=== PATIENT | male | born 1950 | race Caucasian/White ===

== ENCOUNTER 2017-05-04 01:37 | Inpatient (IN) | payer OTHER, MEDICARE ==
[2017-05-04] VITALS (13 sets, daily range): BP systolic 134–188; BP diastolic 63–84; PULSE 72–105; RESP 16–20; TEMP 96.1–98.6; O2SAT 97–99
[~2017-05-04] VITALS: Ht 182.9 cm; Wt 86.3 kg
[~2017-05-04 01:37] MED LIST: ALLBC PO; CARB45TA PO; FEXO180T PO; HEMATINIC/FA PO; LISI-360 PO; LOMO2.5T PO; LOVA10TA PO; METR500I3 PO; NACCAP PO; OMEP20TA PO
[2017-05-04] MEDS ORDERED: ASPI-183 PO (01:57)
[2017-05-04] MEDS ORDERED: LISI40TA PO (01:57)
[2017-05-04] MEDS ORDERED: HYDR-3799 PO (01:57)
[2017-05-04] MEDS ORDERED: CEPH250C PO (01:57)
[2017-05-04] MEDS ORDERED: METO50TA PO (01:57)
[2017-05-04] MEDS ORDERED: BACT800T5 PO (01:57)
[2017-05-04] MEDS ORDERED: ATOR40TA16 PO (01:57)
[2017-05-04] MEDS ORDERED: diphenhydrAMINE HCL 50 MG/ML VIAL IV PUSH ONE (02:15)
--- NOTE | 2017-05-04 02:16 | PD ---
HPI Chief Complaint: Skin Problem Time Seen by Provider: 01:49 Travel History International Travel<30 days: No Contact w/Intl Traveler<30days: No Traveled to known affect area: No History of Present Illness HPI The patient is a 66 year old male who presents to the [facility] emergency department with a history of wrestling 2-1/2 weeks ago playing with the dog and getting his arm caught between a couch and the wall. The patient reports that he yanked his arm out and acquired an abrasion along the lateral and dorsal aspect of the left forearm. He reports that about a week later he noticed that the area was getting red, slightly swollen, and also draining honey colored drainage. He went to [facility] in [facility] for evaluation and was treated with antibiotic. The patient was started on Keflex and Bactrim. He has also been applying Neosporin ointment. He reports that he was doing better up until this evening when he developed generalized itching. He denies taking anything for the itching prior to arrival. The patient is noted to have some bruising of the left elbow and left forearm which he reports is related to the injury. He denies having any imaging done of this left arm. He reports that he bruises easily related to being on an adult aspirin daily. The patient reports that his tetanus is up-to-date. On review of systems, he denies having any known fevers, cough, congestion, neck pain, chest pain, shortness of breath , abdominal pain, vomiting, diarrhea, urinary symptoms, or neurologic symptoms. [facility] Past Medical History Narrative Medical The patient's past medical history is significant for depression, history of arthritis, history of anxiety disorder, history of peripheral vascular disease, history of aortic stenosis status post valve replacement along with coronary artery bypass grafting, history of hypertension. Depression: Yes Cardiovascular Problems: Yes (MURMUR/ CURRENT ANEURYSM) High Cholesterol: Yes Coronary Artery Disease: Yes Diminished Hearing: No Gastrointestinal Disorders: Yes GERD: Yes Hypertension: Yes Neurologic: Yes Tetanus Vaccination: < 5 Years Influenza Vaccination: No Past Surgical History Narrative Surgical The patient's past surgical history is significant for hernia repair, shoulder surgery, history of aortic valve replacement and coronary artery bypass grafting. Abdominal Surgery: Yes (INGUINAL HERNIA REPAIR.) Coronary Artery Bypass Graft: Yes Other Surgery: Yes (cartoid artery ) Social History Alcohol Use: Yes (daily) Tobacco Use: No (QUIT 5 MONTHS AGO) Substance Use: No Allergies-Medications (Allergen,Severity, Reaction): Coded Allergies: No Known Allergies (Verified Allergy, Severe, 04/21/12) Reported Meds & Prescriptions Reported Meds & Active Scripts Active Reported Aspirin 325 Mg Tab 325 Mg PO DAILY Bactrim DS (Sulfamethoxazole-Trimethoprim) 800-160 Mg Tab 1 Tab PO BID Cephalexin 250 Mg Cap 250 Mg PO Q6H Atorvastatin (Atorvastatin Calcium) 40 Mg Tab 40 Mg PO HS Hydralazine HCl 25 Mg Tablet 25 Mg PO DAILY Metoprolol Tartrate 50 Mg Tab 50 Mg PO DAILY Lisinopril 40 Mg Tab 40 Mg PO BID Review of Systems Except as stated in HPI: all other systems reviewed are Neg General / Constitutional: No: Fever Eyes: No: Visual changes HENT: No: Headaches Cardiovascular: No: Chest Pain or Discomfort Respiratory: No: Shortness of Breath Gastrointestinal: No: Nausea, Vomiting, Diarrhea, Abdominal Pain Genitourinary: No: Dysuria Musculoskeletal: Positive: Edema, No: Pain Skin: Positive Rash, Positive Itching Neurologic: No: Weakness, Focal Abnormalities, Change in Mentation, Slurred Speech, Sensory Disturbance Psychiatric: No: Depression Endocrine: No: Polydipsia Hematologic/Lymphatic: No: Easy Bruising Physical Exam Narrative General: The patient is a well-developed well-nourished male in no acute distress. Head and Neck exam: Head is normocephalic atraumatic. Eyes: EOMI, pupils are equal round and reactive to light. Nose: Midline septum with pink mucous membranes Mouth: Dentition unremarkable. Moist mucus membranes. Posterior oropharynx is not erythematous. No tonsillar hypertrophy. Uvula midline. Airway patent. Neck: No palpable lymphadenopathy. No nuchal rigidity. No thyromegaly. Cardiovascular: Regular rate and rhythm with a 2/6 systolic murmur, no gallops or rubs. The patient reports having a history of heart murmur with an aortic valve replacement. Lungs: Clear to auscultation bilaterally. No wheezes, rhonchi, or rales. Abdomen: Soft, without tenderness to palpation in all 4 quadrants of the abdomen. No guarding, rebound, or rigidity. Normal bowel sounds are audible. No tenderness on palpation of McBurney's point. Extremities: No clubbing, cyanosis, or edema. 2+ pulses in all 4 extremities. No calf tenderness on palpation. Back: No spinous process tenderness to palpation. No costovertebral angle tenderness to palpation. Neurologic Exam: Grossly nonfocal. Skin Exam: The patient on examination is noted to have dry skin. The patient is repeatedly scratching at his neck, arms. The patient has scratch levine with excoriations noted. The patient has areas of superficial bruising related to scratching. The patient is noted on examination of the left forearm to have skin erythema with honey-colored crusting and a band involving the dorsal aspect of the left forearm. Additionally, the patient appears to have urticaria on his hands. Data Data Last Documented VS Vital Signs Date Time Temp Pulse Resp B/P (MAP) Pulse Ox O2 Delivery O2 Flow Rate FiO2 05/04/17 03:47 98.2 100 16 174/79 (110) 99 Room Air Orders Orders Complete Blood Count With Diff (05/04/17 02:08) Comprehensive Metabolic Panel (05/04/17 02:08) Prothrombin Time / Inr (Pt) (05/04/17 02:08) Act Partial Throm Time (Ptt) (05/04/17 02:08) C-Reactive Protein (Crp) (05/04/17 02:08) Iv Access Insert/Monitor (05/04/17 02:08) Ecg Monitoring (05/04/17 02:08) Oximetry (05/04/17 02:08) Diphenhydramine Inj (Benadryl Inj) (05/04/17 02:15) Sodium Chlorid 0.9% 500 Ml Inj (Ns 500 M (05/04/17 03:00) Chest, Single Ap (05/04/17 02:57) Forearm (2vws) (05/04/17 ) Urinalysis - C+S If Indicated (05/04/17 03:47) Sodium, Random Urine (05/04/17 03:47) Osmolality, Urine (05/04/17 03:47) Osmolality,Serum (05/04/17 03:47) Sodium Chloride 0.9% Flush (Ns Flush) (05/04/17 04:00) Admit Order (Ed Use Only) (05/04/17 04:00) Cefazolin 2 Gm Premix (Ancef 2 Gm Premix (05/04/17 04:00) Labs Laboratory Tests Test 05/04/17 02:10 05/04/17 04:00 White Blood Count 7.0 TH/MM3 Red Blood Count 4.04 MIL/MM3 Hemoglobin 13.2 GM/DL Hematocrit 37.2 % Mean Corpuscular Volume 92.1 FL Mean Corpuscular Hemoglobin 32.6 PG Mean Corpuscular Hemoglobin Concent 35.4 % Red Cell Distribution Width 12.6 % Platelet Count 255 TH/MM3 Mean Platelet Volume 7.8 FL Neutrophils (%) (Auto) 56.4 % Lymphocytes (%) (Auto) 13.8 % Monocytes (%) (Auto) 16.6 % Eosinophils (%) (Auto) 12.3 % Basophils (%) (Auto) 0.9 % Neutrophils # (Auto) 4.0 TH/MM3 Lymphocytes # (Auto) 1.0 TH/MM3 Monocytes # (Auto) 1.2 TH/MM3 Eosinophils # (Auto) 0.9 TH/MM3 Basophils # (Auto) 0.1 TH/MM3 CBC Comment DIFF FINAL Differential Comment Prothrombin Time 10.0 SEC Prothromb Time International Ratio 1.0 RATIO Activated Partial Thromboplast Time 32.1 SEC Blood Urea Nitrogen 15 MG/DL Creatinine 1.21 MG/DL Random Glucose 96 MG/DL Total Protein 7.9 GM/DL Albumin 4.2 GM/DL Calcium Level 9.0 MG/DL Alkaline Phosphatase 123 U/L Aspartate Amino Transf (AST/SGOT) 44 U/L Alanine Aminotransferase (ALT/SGPT) 55 U/L Total Bilirubin 0.7 MG/DL Sodium Level 124 MEQ/L Potassium Level 4.7 MEQ/L Chloride Level 93 MEQ/L Carbon Dioxide Level 22.0 MEQ/L Anion Gap 9 MEQ/L Estimat Glomerular Filtration Rate 60 ML/MIN C-Reactive Protein 0.89 MG/DL Urine Color LIGHT-YELLOW Urine Turbidity CLEAR Urine pH 5.0 Urine Specific Donaldson 1.002 Urine Protein NEG mg/dL Urine Glucose (UA) NEG mg/dL Urine Ketones 10 mg/dL Urine Occult Blood NEG Urine Nitrite NEG Urine Bilirubin NEG Urine Urobilinogen LESS THAN 2.0 MG/DL Urine Leukocyte Esterase NEG Urine Mucus FEW /lpf Microscopic Urinalysis Comment CULT NOT INDICATED Urine Osmolality 148 MOSM/KG Urine Random Sodium 29 MEQ/L Serum Osmolality 268 MOSM/KG MDM Medical Decision Making Medical Screen Exam Complete: Yes Emergency Medical Condition: Yes Medical Record Reviewed: Yes Interpretation(s) Last Impressions Chest X-Ray 05/04/17 0257 Signed Impressions: Service Date/Time: Thursday, May 04, 2017 03:05 - CONCLUSION: Cardiomegaly. Clear lungs. Daniel Yousif Jr., MD Radius/Ulna X-Ray 05/04/17 0000 Signed Impressions: Service Date/Time: Thursday, May 04, 2017 03:18 - CONCLUSION: Unremarkable examination of the left forearm. Daniel Yousif Jr., MD Differential Diagnosis Allergic reaction, versus contact dermatitis, versus worsening cellulitis, versus impetigo Narrative Course During the course of the patients emergency department visit, the patients history, examination, and differential diagnosis were reviewed with the patient. The patient was placed on a satellite project site monitor with oximetry and frequent blood pressure monitoring. The patient had IV access obtained and blood work sent for analysis. A chest x-ray was ordered, left forearm x-ray was ordered. The patient was initially provided Benadryl 50 mg IV. The patient was given Ancef 2 g IV. The patients laboratory studies were reviewed and remarkable for a white count of 7, hemoglobin 13.2, platelets 255 with monocytes 16.6, eosinophilia at 12.3. CMP is remarkable for sodium of 124, chloride 93, GFR 60, AST 44, alkaline phosphatase 123, C-reactive protein 0.89, serum osmolality is 268, PT 10, PTT 32.1, urinalysis shows 10 ketones otherwise unremarkable, urine osmolality is 148, urine random sodium is 29. Given the patient's hyponatremia and ketones in the urine the patient was given normal saline a 500 mL bolus. The patient's sodium will be reassessed. The patient will be admitted to the hospital for hyponatremia. Radiology studies were reviewed and remarkable for a chest x-ray that shows cardiomegaly, clear lungs otherwise. Radius and ulna on forearm x-ray on the left side are negative for acute abnormality. The patients results were discussed with the patient, including the plan of care. I explained that further testing and/ or monitoring is indicated based on the patients history, examination, and/ or laboratory findings. Therefore, I recommended admission for additional evaluation. The patient expressed understanding and was agreeable with this plan. The patient was admitted to the hospital in stable condition and [facility] Physician Communication Physician Communication The patient's case including history, pertinent physical examination findings, and laboratory studies were discussed with Dr. Portillo. It was agreed that the [facility] Diagnosis Primary Impression: Hyponatremia Additional Impressions: Urticaria Left arm cellulitis Admitting Information Admitting Physician Requests: Admit Katy Ricci MD May 04, 2017 02:16
[2017-05-04 02:27] LABS: BASOPHIL # 0.1 TH/MM3 (0-0.2); BASOPHIL % 0.9 % (0.0-2.0); EOSINOPHIL # 0.9 TH/MM3 (0-0.4); EOSINOPHIL % 12.3 % (0.0-4.0); HEMATOCRIT 37.2 % (39.0-51.0); HEMOGLOBIN 13.2 GM/DL (13.0-17.0); LYMPH % 13.8 % (9.0-44.0); MEAN CELL VOLUME 92.1 FL (80.0-100.0); MEAN CORPUSCULAR HEMOGLOBIN 32.6 PG (27.0-34.0); MEAN CORPUSCULAR HGB CONC 35.4 % (32.0-36.0); MEAN PLATELET VOLUME 7.8 FL (7.0-11.0); MONO % 16.6 % (0.0-8.0); MONOCYTE # 1.2 TH/MM3 (0-0.9); NEUT % 56.4 % (16.0-70.0); PLATELET COUNT 255 TH/MM3 (150-450); RED BLOOD COUNT 4.04 MIL/MM3 (4.50-5.90); RED CELL DISTRIBUTION WIDTH 12.6 % (11.6-17.2)
[2017-05-04 02:44] LABS: ALBUMIN 4.2 GM/DL (3.4-5.0); ALKALINE PHOSPHATASE 123 U/L (45-117); ALT (GPT) 55 U/L (12-78); AST (GOT) 44 U/L (15-37); BLOOD UREA NITROGEN 15 MG/DL (7-18); C-REACTIVE PROTEIN 0.89 MG/DL (0.00-0.30); CHLORIDE 93 MEQ/L (98-107); CREATININE 1.21 MG/DL (0.60-1.30); GLOMERULAR FILTRATION RATE 60 ML/MIN (>89); GLUCOSE,RANDOM 96 MG/DL (74-106); TOTAL BILIRUBIN ADULT 0.7 MG/DL (0.2-1.0); TOTAL PROTEIN 7.9 GM/DL (6.4-8.2)
[2017-05-04 02:45] LABS: SODIUM (NA) 124 MEQ/L (136-145)
[2017-05-04] MEDS ORDERED: SODIUM CHLORID 0.9% 500 ML INJ 500 ML IV ONE (03:00)
--- NOTE | 2017-05-04 03:45 | RADRPT ---
EXAM DATE/TIME: 05/04/2017 03:05 [facility] COMPARISON: No previous studies available for comparison. INDICATIONS : Cough and short of breath. MEDICAL HISTORY : None. SURGICAL HISTORY : CABG. ENCOUNTER: Initial ACUITY: 1 day PAIN SCORE: 0/10 LOCATION: Bilateral chest FINDINGS: 2 portable frontal views of the chest show median sternotomy wires and prosthetic heart valve. Heart is mildly enlarged. Lungs are clear. No infiltrates or effusions. CONCLUSION: Cardiomegaly. Clear lungs. Daniel Yousif Jr., MD on May 04, 2017 at 3:43 Board Certified Radiologist. This report was verified electronically.
--- NOTE | 2017-05-04 03:46 | RADRPT ---
EXAM DATE/TIME: 05/04/2017 03:18 [facility] COMPARISON: No previous studies available for comparison. INDICATIONS : Left forearm pain, redness, and itching. Unknown cause. MEDICAL HISTORY : None. SURGICAL HISTORY : None. ENCOUNTER: Initial ACUITY: 2 weeks PAIN SCORE: 6/10 LOCATION: Left forearm FINDINGS: Two view examination of the left forearm demonstrates no evidence of fracture or dislocation. Bony m ineralization is normal. The soft tissue structures are intact. CONCLUSION: Unremarkable examination of the left forearm. Daniel Yousif Jr., MD on May 04, 2017 at 3:44 Board Certified Radiologist. This report was verified electronically.
[2017-05-04] MEDS ORDERED: ceFAZolin 2 GM PREMIX 50 ML IV ONE (04:00)
[2017-05-04] MEDS ORDERED: SODIUM CHLORIDE 0.9% FLUSH 10 ML FLUSH IVF PRN (04:00)
[2017-05-04 04:13] LABS: BILIRUBIN, URINE NEG (NEG); BLOOD, URINE NEG (NEG); GLUCOSE,URINE NEG (NEG); KETONE, URINE 10 mg/dL (NEG); MUCUS URINE FEW /lpf (OCC); NITRITE,URINE NEG (NEG); SODIUM,RANDOM URINE 29 MEQ/L; URINE COLOR LIGHT-YELLOW (YELLW/STRAW); URINE LEUKOCYTE ESTERASE NEG (NEG)
[2017-05-04] MEDS ORDERED: LACTULOSE SYRUP 20 GM/30 ML CUP PO PRN (04:15)
[2017-05-04] MEDS ORDERED: SENNOSIDES 8.6 MG TAB PO PRN (04:15)
[2017-05-04] MEDS ORDERED: ACETAMINOPHEN 325 MG TAB PO PRN (04:15)
[2017-05-04] MEDS ORDERED: BISACODYL 10 MG SUPP RECTAL PRN (04:15)
[2017-05-04] MEDS ORDERED: MAGNESIUM HYDROXIDE SUSP 30 ML CUP PO PRN (04:15)
[2017-05-04] MEDS ORDERED: ACETAMINOPHEN/HYDROcodone 325 MG/5 MG TAB PO PRN (04:15)
[2017-05-04] MEDS ORDERED: MORPHINE SULFATE 2 MG/ML INJ IV PUSH PRN (04:15)
[2017-05-04] MEDS ORDERED: ONDANSETRON HCL 4 MG/2 ML VIAL IVP PRN (04:15)
[2017-05-04] MEDS ORDERED: Vancomycin Consult Pharmacy 1 EA OTHER SCH (04:15)
[2017-05-04 04:28] LABS: OSMOLALITY,URINE 148 MOSM/KG (300-1300)
[2017-05-04] MEDS ORDERED: VANCOMYCIN 1,000 MG/NS 250 ML IV ONE ×2 (05:00)
[2017-05-04] MEDS: SODIUM CHLOR 0.9% 1000 ML INJ 1,000 ML IV SCH ×2 (05:12→11:31)
[2017-05-04] MEDS: SODIUM CHLORIDE 0.9% FLUSH 10 ML FLUSH IV FLUSH SCH ×2 (09:00→20:27)
[2017-05-04] MEDS: DOCUSATE SODIUM 50 MG/SENNA 8.6 MG TAB PO SCH ×2 (09:00→20:27)
[2017-05-04] MEDS: diphenhydrAMINE HCL 50 MG/ML VIAL IV PUSH PRN ×2 (11:30→20:27)
[2017-05-04] MEDS: METOPROLOL TARTRATE 25 MG TAB PO SCH ×2 (11:51→20:27)
[2017-05-04 13:12] LABS: BICARBONATE 22.8 MEQ/L (21.0-32.0); CALCIUM 8.9 MG/DL (8.5-10.1); CREATININE 1.17 MG/DL (0.60-1.30)
[2017-05-04] MEDS ORDERED: THIAMINE HCL 100 MG TAB PO ONE (15:00)
[2017-05-04] MEDS ORDERED: diphenhydrAMINE HCL 50 MG/ML VIAL IM PRN (15:15)
--- NOTE | 2017-05-04 15:15 | HHI.HP ---
[facility] Unknown Admission Diagnosis Hyponatremia, left arm cellulitis Diagnoses: Travel History International Travel<30 Days: No Contact w/Intl Traveler <30 Da: No Traveled to Known Affected Are: No History of Present Illness 66-year-old male with a history of CAD, status post CABG, reports injuring his left arm last week, with subsequent erythema having undergone evaluation at [facility], prescribed Keflex and Bactrim with initial improvement. He presents today, however with a one-day history of worsening left forearm itching with extension up to left arm. He denies any pain at all. Denies any other systemic symptoms. As any chest pain, shortness breath, nausea, vomiting, fevers, chills. Patient does report a history of heavy drinking 9-10 beers per day. Denies any history of seizures or alcohol withdrawal. Review of Systems Except as stated in HPI: all other systems reviewed are Neg Past Family Social History Past Medical History CAD with CABG History of aortic valve repair Hyperlipidemia Hypertension Alcoholism. Past Surgical History CABG, as well as aortic valve replacement. Hernia repair Left carotid endarterectomy Reported Medications Reported Meds & Active Scripts Active Reported Aspirin 325 Mg Tab 325 Mg PO DAILY Bactrim DS (Sulfamethoxazole-Trimethoprim) 800-160 Mg Tab 1 Tab PO BID Cephalexin 250 Mg Cap 250 Mg PO Q6H Atorvastatin (Atorvastatin Calcium) 40 Mg Tab 40 Mg PO HS Hydralazine HCl 25 Mg Tablet 25 Mg PO DAILY Metoprolol Tartrate 50 Mg Tab 50 Mg PO DAILY Lisinopril 40 Mg Tab 40 Mg PO BID Allergies: Coded Allergies: No Known Allergies (Verified Allergy, Severe, 04/21/12) Family History says he is unsure of his family history as his parents when he was ready young. Social History Patient reports past history of smoking. He smoked 2 packs per day for 40 years , quitting 7 years ago.. Patient reports drinking 9-10 beers per day. He denies any history withdrawal. Denies any history of seizures. Patient denies any history of illicit drug use. Physical Exam Vital Signs Vital Signs Date Time Temp Pulse Resp B/P (MAP) Pulse Ox O2 Delivery O2 Flow Rate FiO2 05/04/17 12:00 97.6 91 20 134/63 (86) 98 05/04/17 10:56 Room Air 05/04/17 08:00 97.4 92 20 155/71 (99) 98 05/04/17 05:27 Room Air 05/04/17 05:14 97 05/04/17 04:55 97.8 105 16 155/74 (101) 97 05/04/17 03:47 98.2 100 16 174/79 (110) 99 Room Air 05/04/17 02:16 18 98 Room Air 05/04/17 02:00 98.6 05/04/17 01:40 97.9 105 20 188/84 (118) 98 Physical Exam GENERAL: This is a well-nourished, well-developed patient, in no apparent distress. aaox3 SKIN: Cool and dry. Patient with erythema, macerated skin over the left forearm with appearance of impetigo, with some erythema extending partially past elbow. Patient has various ecchymosis over his skin which she says is normal for him. HEAD: Atraumatic. Normocephalic. No temporal or scalp tenderness. EYES: Pupils equal round and reactive. Extraocular motions intact. No scleral icterus. No injection or drainage. ENT: Nose without bleeding, purulent drainage or septal hematoma. Throat without erythema, tonsillar hypertrophy or exudate. Uvula midline. Airway patent. NECK: Trachea midline. No JVD or lymphadenopathy. Supple, nontender, no meningeal signs. CARDIOVASCULAR: Regular rate and rhythm without murmurs, gallops, or rubs. RESPIRATORY: Clear to auscultation. Breath sounds equal bilaterally. No wheezes , rales, or rhonchi. GASTROINTESTINAL: Abdomen soft, non-tender, nondistended. No hepato-splenomegaly , or palpable masses. No guarding. MUSCULOSKELETAL: Extremities without clubbing, cyanosis, or edema. No joint tenderness, effusion, or edema noted. No calf tenderness. Negative Homans sign bilaterally. NEUROLOGICAL: Awake and alert. Cranial nerves II through XII intact. Motor and sensory grossly within normal limits. Five out of 5 muscle strength in all muscle groups. Normal speech. Laboratory Laboratory Tests Test 05/04/17 02:10 05/04/17 04:00 05/04/17 11:55 05/04/17 12:55 White Blood Count 7.0 Red Blood Count 4.04 Hemoglobin 13.2 Hematocrit 37.2 Mean Corpuscular Volume 92.1 Mean Corpuscular Hemoglobin 32.6 Mean Corpuscular Hemoglobin Concent 35.4 Red Cell Distribution Width 12.6 Platelet Count 255 Mean Platelet Volume 7.8 Neutrophils (%) (Auto) 56.4 Lymphocytes (%) (Auto) 13.8 Monocytes (%) (Auto) 16.6 Eosinophils (%) (Auto) 12.3 Basophils (%) (Auto) 0.9 Neutrophils # (Auto) 4.0 Lymphocytes # (Auto) 1.0 Monocytes # (Auto) 1.2 Eosinophils # (Auto) 0.9 Basophils # (Auto) 0.1 CBC Comment DIFF FINAL Differential Comment Prothrombin Time 10.0 Prothromb Time International Ratio 1.0 Activated Partial Thromboplast Time 32.1 Blood Urea Nitrogen 15 13 Creatinine 1.21 1.17 Random Glucose 96 97 Total Protein 7.9 Albumin 4.2 Calcium Level 9.0 8.9 Alkaline Phosphatase 123 Aspartate Amino Transf (AST/SGOT) 44 Alanine Aminotransferase (ALT/SGPT) 55 Total Bilirubin 0.7 Sodium Level 124 131 Potassium Level 4.7 5.1 Chloride Level 93 99 Carbon Dioxide Level 22.0 22.8 Anion Gap 9 9 Estimat Glomerular Filtration Rate 60 63 C-Reactive Protein 0.89 Urine Color LIGHT-YELLOW Urine Turbidity CLEAR Urine pH 5.0 Urine Specific [place] 1.002 Urine Protein NEG Urine Glucose (UA) NEG Urine Ketones 10 Urine Occult Blood NEG Urine Nitrite NEG Urine Bilirubin NEG Urine Urobilinogen LESS THAN 2.0 Urine Leukocyte Esterase NEG Urine Mucus FEW Microscopic Urinalysis Comment CULT NOT INDICATED Urine Osmolality 148 Urine Random Sodium 29 Serum Osmolality 268 Urine Opiates Screen NEG Urine Barbiturates Screen NEG Urine Amphetamines Screen NEG Urine Benzodiazepines Screen NEG Urine Cocaine Screen NEG Urine Cannabinoids Screen NEG Result Diagram: 05/04/17 0210 05/04/17 1155 Imaging Last Impressions Chest X-Ray 05/04/17 0257 Signed Impressions: Service Date/Time: Thursday, May 04, 2017 03:05 - CONCLUSION: Cardiomegaly. Clear lungs. Daniel Yousif Jr., MD Radius/Ulna X-Ray 05/04/17 0000 Signed Impressions: Service Date/Time: Thursday, May 04, 2017 03:18 - CONCLUSION: Unremarkable examination of the left forearm. Daniel Yousif Jr., MD Caprini VTE Risk Assessment Caprini VTE Risk Assessment: Mod/High Risk (score >= 2) Caprini Risk Assessment Model Point Value = 1 Point Value = 2 Point Value = 3 Point Value = 5 Age 41-60 Minor surgery BMI > 25 kg/m2 Swollen legs Varicose veins or History of unexplained or recurrent spontaneous Oral contraceptives or hormone replacement Sepsis (< 1 month) Serious lung disease, including pneumonia (< 1 month) Abnormal pulmonary function Acute myocardial infarction Congestive heart failure (< 1 month) History of inflammatory bowel disease Medical patient at bed rest Age 61-74 Arthroscopic surgery Major open surgery (> 45 min) Laparoscopic surgery (> 45 min) Malignancy Confined to bed (> 72 hours) Immobilizing plaster cast Central venous access Age >= 75 History of VTE Family history of VTE Factor V Leiden Prothrombin [id number] Lupus anticoagulant Anticardiolipin antibodies Elevated serum homocysteine Heparin-induced thrombocytopenia Other congenital or acquired thrombophilia Stroke (< 1 month) Elective arthroplasty Hip, pelvis, or leg fracture Acute spinal cord injury (< 1 month) Prophylaxis Regimen Total Risk Factor Score Risk Level Prophylaxis Regimen 0-1 Low Early ambulation 2 Moderate Order ONE of the following: *Sequential Compression Device (SCD) *Heparin 5000 units SQ BID 3-4 Higher Order ONE of the following medications: *Heparin 5000 units SQ TID *Enoxaparin/Lovenox 40 mg SQ daily (WT < 150 kg, CrCl > 30 mL/min) *Enoxaparin/Lovenox 30 mg SQ daily (WT < 150 kg, CrCl > 10-29 mL/min) *Enoxaparin/Lovenox 30 mg SQ BID (WT < 150 kg, CrCl > 30 mL/min) AND/OR *Sequential Compression Device (SCD) 5 or more Highest Order ONE of the following medications: *Heparin 5000 units SQ TID (Preferred with Epidurals) *Enoxaparin/Lovenox 40 mg SQ daily (WT < 150 kg, CrCl > 30 mL/min) *Enoxaparin/Lovenox 30 mg SQ daily (WT < 150 kg, CrCl > 10-29 mL/min) *Enoxaparin/Lovenox 30 mg SQ BID (WT < 150 kg, CrCl > 30 mL/min) AND *Sequential Compression Device (SCD) Assessment and Plan Assessment and Plan //Left arm cellulitis/impetigo. -Appears to be improving with antibiotics. Continue vancomycin and cefazolin. -Eosinophils appear to be elevated, however symptoms are improving. if fails to improve further, we'll consider antihistamine and steroids. -If this is a strep-related infection, would have expected this to improve very quickly on outpatient Keflex. We'll consult ID for assistance. //Severe hypoosmotic hyponatremia 124 on admission. //BEER potomania -History for alcoholism as below. Received IV fluids in the ER. imProved to 131. Will stop IV fluids, avoid alcohol. 2 L fluid restriction //Alcoholism -Scheduled Librium. Case management consult for alcohol rehabilitation resources. Patient counseled on cessation. //CAD //Hyperlipidemia -Continue metoprolol. Hold off on statin due to liver dysfunction. Hold off on lisinopril secondary to severe hyponatremia. Continue aspirin. Prophylaxis. SCDs Discussed Condition With Patient, nurse. Physician Certification 2 Midnight Certification Type: Admission for Inpatient Services Order for Inpatient Services The services are ordered in accordance with Medicare regulations or non- Medicare payer requirements, as applicable. In the case of services not specified as inpatient-only, they are appropriately provided as inpatient services in accordance with the 2-midnight benchmark. Estimated LOS (days): 2 days is the estimated time the patient will need to remain in the hospital, assuming treatment plan goals are met and no additional complications. Post-Hospital Plan: Not yet determined Brant Stein MD May 04, 2017 15:15
--- NOTE | 2017-05-04 16:58 | MB ---
cc: RADHA STEIN MD, FRANKLYN F. MD DATE OF CONSULTATION: 05/04/[address] Stein REASON FOR CONSULTATION Left arm cellulitis, failed antibiotic outpatient. HISTORY OF PRESENT ILLNESS This is a 66-year-old white male who sustained a tiny laceration to his left forearm about dmn-nms-w-half weeks ago. He was evaluated at [facility] in [facility] and he was given oral antibiotics to take for a week. The antibiotics were Keflex and Bactrim. He noted that the wound was looking worse and, therefore, he presented to [facility] for evaluation. He states that this arm has been weeping clear fluid. The patient states that the injury occurred initially when he was playing with his dog and he stuck his hand between the couch and the wall and when he pulled his hand out from that location, he had the laceration but there was no injury from the dog. The patient states he was wearing a long sleeve shirt and when he took it off he noticed it was worse. He notes that his arm has itching. He also notes that he was given a cream to put on the skin which he said he used. He cannot tell me what the name of the cream is. He was evaluated in the emergency department, was admitted and is now on intravenous vancomycin. His white blood cell count is normal. The patient has had tattoos on his arm and when I asked him about his right arm which has dry brown discoloration of the skin, he tells me that his arm has always been like that. PAST MEDICAL HISTORY 1. Hypertension. 2. Hyperlipidemia. 3. History of shoulder surgery. 4. History of aortic valve repair. 5. Hernia repair. 6. Carotid endarterectomy. ALLERGIES NO KNOWN DRUG ALLERGIES. MEDICATIONS 1. Aspirin. 2. Vancomycin. 3. Librium. 4. Benadryl. 5. Cefazolin. 6. Lopressor. 7. Ivis-Colace SOCIAL HISTORY Alcohol positive in the form of beer daily. The patient drinks at least 10 beers a day. No tobacco. No illicit drug use. FAMILY HISTORY Noncontributory. REVIEW OF SYSTEMS Negative on 10 point review except for itching and mild pain in the left upper extremity. The patient denies nausea or vomiting, shortness of breath or chills. PHYSICAL EXAMINATION This is a well-developed male who is in no acute distress. He is awake and alert and oriented. VITAL SIGNS: Include temperature 97.6, blood pressure 134/63, heart rate 91, respiratory rate 20. HEENT: The head is atraumatic. Extraocular movements grossly intact, no icterus. Oropharynx: moist mucosa without lesions. Neck: Supple. No adenopathy and no swelling. Lungs: Breath sounds clear. Heart: Regular S1-S2 without audible murmurs, rubs or gallops. Abdomen: Bowel sounds present, soft. No tenderness. Rectal: Not performed. Extremities: The left upper extremity has brown discoloration of the skin and there is clear drainage oozing. There is erythema slightly above the left elbow that is not confluent. Extremities have no clubbing, cyanosis or edema. Skin: Erythematous hue to the skin of the neck and chest, and also the dorsal aspect of the hands. Neuro: No gross focal findings. Psychiatric: The patient is calm and cooperative. LABORATORY DATA WBC 7.0, platelets 255, hemoglobin 13.1. Differential includes 12% eosinophils, 16% monocytes, 56% neutrophils, creatinine 1.17, BUN 13, sodium 131. IMAGING STUDIES Chest x-ray: No acute disease. X-ray of the left forearm: Unremarkable. IMPRESSION: Cellulitis involving the left upper extremity. The appearance of the left upper extremity also could be due to some sort of allergic reaction to either antibiotics or the cream that the patient was using on his upper extremity. He denies diffuse itching but he does have some itching of the left upper extremity and there is blister form appearance of the upper extremity as well. RECOMMENDATIONS 1. Obtain a culture of the clear drainage of the arm. 2. Continue vancomycin 3. Changes cephazolin to Unasyn. 4. Monitor clinical response. Thank for this consultation. I will follow the patient's progress and will make further recommendations if necessary. Charlie Vinson MD FD/NELLIE /4:01 PM /4:27 PM
[2017-05-04] MEDS ORDERED: AMPICILLIN-SULBACTAM INJ 3 GM VIAL IM SCH (17:00)
[2017-05-04] MEDS: AMPICILLIN/SULBAC 3 GM/NS 100 ML IV SCH ×2 (18:03)
[2017-05-05] VITALS (7 sets, daily range): BP systolic 103–146; BP diastolic 63–74; PULSE 57–100; RESP 16–20; TEMP 97.3–98.8; O2SAT 96–97
[2017-05-05] MEDS: diphenhydrAMINE HCL 50 MG/ML VIAL IV PUSH PRN (00:53)
[2017-05-05] MEDS: AMPICILLIN/SULBAC 3 GM/NS 100 ML IV SCH ×10 (00:53→23:42)
[2017-05-05] MEDS: VANCOMYCIN INJ 1,250 MG in SODIUM CHLOR 0.9% 250 ML INJ 250 ML IV SCH (05:45)
[2017-05-05 08:10] LABS: AUTOMATED NEUTROPHIL # 2.8 TH/MM3 (1.8-7.7); BASOPHIL # 0.1 TH/MM3 (0-0.2); BASOPHIL % 1.3 % (0.0-2.0); EOSINOPHIL % 17.5 % (0.0-4.0); HEMATOCRIT 37.5 % (39.0-51.0); LYMPH % 15.2 % (9.0-44.0); LYMPHOCYTE # 0.9 TH/MM3 (1.0-4.8); MEAN CELL VOLUME 94.9 FL (80.0-100.0); MEAN CORPUSCULAR HEMOGLOBIN 32.9 PG (27.0-34.0); MEAN CORPUSCULAR HGB CONC 34.6 % (32.0-36.0); MEAN PLATELET VOLUME 7.8 FL (7.0-11.0); MONO % 19.1 % (0.0-8.0); MONOCYTE # 1.1 TH/MM3 (0-0.9); NEUT % 46.9 % (16.0-70.0); PLATELET COUNT 223 TH/MM3 (150-450); RED BLOOD COUNT 3.95 MIL/MM3 (4.50-5.90); RED CELL DISTRIBUTION WIDTH 12.8 % (11.6-17.2); WHITE BLOOD COUNT 5.9 TH/MM3 (4.0-11.0)
[2017-05-05 08:31] LABS: ALBUMIN 3.7 GM/DL (3.4-5.0); ALT (GPT) 43 U/L (12-78); AST (GOT) 35 U/L (15-37); BICARBONATE 21.9 MEQ/L (21.0-32.0); BLOOD UREA NITROGEN 10 MG/DL (7-18); CHLORIDE 101 MEQ/L (98-107); CREATININE 1.01 MG/DL (0.60-1.30); GLOMERULAR FILTRATION RATE 74 ML/MIN (>89); GLUCOSE,RANDOM 104 MG/DL (74-106); SODIUM (NA) 132 MEQ/L (136-145)
[2017-05-05 08:32] LABS: ALKALINE PHOSPHATASE 111 U/L (45-117); TOTAL BILIRUBIN ADULT 0.7 MG/DL (0.2-1.0); TOTAL PROTEIN 7.4 GM/DL (6.4-8.2)
[2017-05-05] MEDS ORDERED: METOPROLOL TARTRATE 50 MG TAB PO SCH (09:00)
[2017-05-05] MEDS: THIAMINE HCL 100 MG TAB PO SCH (09:21)
[2017-05-05] MEDS: METOPROLOL TARTRATE 25 MG TAB PO SCH ×2 (09:22→21:04)
[2017-05-05] MEDS: DOCUSATE SODIUM 50 MG/SENNA 8.6 MG TAB PO SCH ×2 (09:22→21:04)
[2017-05-05] MEDS: ASPIRIN 325 MG TAB PO SCH (09:22)
[2017-05-05] MEDS: SODIUM CHLORIDE 0.9% FLUSH 10 ML FLUSH IV FLUSH SCH ×2 (09:23→21:05)
--- NOTE | 2017-05-05 12:29 | HHI.IDPN ---
Note Infectious Disease Note Patient notes itching of the arms and also the back. Afebrile. Denies chills. No joint aches. This is a 66-year-old white male who sustained a tiny laceration to his left forearm about xgs-msp-a-half weeks ago. He was evaluated at [facility] in [facility] and he was given oral antibiotics to take for a week. The antibiotics were Keflex and Bactrim. He noted that the wound was looking worse and, therefore, he presented to [place] for evaluation. PAST MEDICAL HISTORY 1. Hypertension. 2. Hyperlipidemia. 3. History of shoulder surgery. 4. History of aortic valve repair. 5. Hernia repair. 6. Carotid endarterectomy. ALLERGIES NO KNOWN DRUG ALLERGIES. Current Medications Medications (Trade) Dose Ordered Sig/Arnaldo Route PRN Reason Start Time Stop Time Status Last Admin Dose Admin Sodium Chloride (NS Flush) 2 ml UNSCH PRN IVF FLUSH AFTER USING IV ACCESS 05/04/17 04:00 Pharmacy Profile Note 0 ml @ 0 mls/hr UNSCH OTHER 05/04/17 04:15 Sodium Chloride (NS Flush) 2 ml UNSCH PRN IV FLUSH FLUSH AFTER USING IV ACCESS 05/04/17 04:15 Sodium Chloride (NS Flush) 2 ml BID IV FLUSH 05/04/17 09:00 05/05/17 09:23 Ondansetron HCl (Zofran Inj) 4 mg Q6H PRN IVP NAUSEA OR VOMITING 05/04/17 04:15 Acetaminophen (Tylenol) 650 mg Q6H PRN PO FEVER/PAIN SCALE 1 TO 2 05/04/17 04:15 Acetaminophen/ Hydrocodone Bitart ([place] 5-325 Mg) 1 tab Q4H PRN PO PAIN SCALE 3 TO 5 05/04/17 04:15 Morphine Sulfate (Morphine Inj) 2 mg Q3H PRN IV PUSH Pain 6-10 05/04/17 04:15 Senna/Docusate Sodium (Ivis-Colace) 1 tab BID PO 05/04/17 09:00 05/05/17 09:22 Magnesium Hydroxide (Milk Of Magnesia Liq) 30 ml Q12H PRN PO Mild constipation 05/04/17 04:15 Sennosides (Senokot) 17.2 mg Q12H PRN PO Moderate constipation 05/04/17 04:15 Bisacodyl (Dulcolax Supp) 10 mg DAILY PRN RECTAL SEVERE CONSITIPATION 05/04/17 04:15 Lactulose (Lactulose Liq) 30 ml DAILY PRN PO SEVERE CONSITIPATION 05/04/17 04:15 Diphenhydramine HCl (Benadryl Inj) 25 mg Q4H PRN IV PUSH ITCHING 05/04/17 04:15 05/05/17 00:53 Vancomycin HCl 1250 mg/Sodium Chloride 262.5 ml @ 250 mls/hr Q24H IV 05/05/17 06:00 05/05/17 05:45 Miscellaneous Information SPECIFIC LAB TO BE HUGO... ONCE ONCE .XX 05/07/17 05:45 05/07/17 05:46 Aspirin (Aspirin) 325 mg DAILY PO 05/05/17 09:00 05/05/17 09:22 Metoprolol Tartrate (Lopressor) 25 mg Q12HR PO 05/04/17 12:00 05/05/17 09:22 Chlordiazepoxide (Librium) 5 mg TID PO 05/04/17 18:00 05/05/17 09:21 Thiamine HCl (Vitamin B1) 100 mg DAILY PO 05/05/17 09:00 05/05/17 09:21 Diphenhydramine HCl (Benadryl Inj) 25 mg Q4H PRN IM ITCHING 05/04/17 15:15 Ampicillin Sodium/ Sulbactam Sodium 3 gm/Sodium Chloride 100 ml @ 200 mls/hr Q6H IV 05/04/17 18:00 05/05/17 05:01 OBJECTIVE: Vital Signs Date Time Temp Pulse Resp B/P (MAP) Pulse Ox O2 Delivery O2 Flow Rate FiO2 05/05/17 08:00 97.7 71 20 146/74 (98) 97 05/05/17 04:00 Room Air 05/05/17 04:00 97.4 71 16 124/70 (88) 97 05/05/17 03:46 57 05/05/17 00:00 Room Air 05/05/17 00:00 97.5 65 18 146/67 (93) 97 05/04/17 23:46 72 05/04/17 20:00 97.8 80 18 151/79 (103) 98 1/1/18 20:00 Room Air 05/04/17 19:52 82 05/04/17 17:32 82 05/04/17 16:00 96.1 83 20 151/67 (95) 98 05/04/17 16:00 81 Laboratory Tests Test 05/04/17 02:10 05/05/17 07:37 White Blood Count 7.0 TH/MM3 5.9 TH/MM3 Red Blood Count 4.04 MIL/MM3 3.95 MIL/MM3 Hemoglobin 13.2 GM/DL 13.0 GM/DL Hematocrit 37.2 % 37.5 % Mean Corpuscular Volume 92.1 FL 94.9 FL Mean Corpuscular Hemoglobin 32.6 PG 32.9 PG Mean Corpuscular Hemoglobin Concent 35.4 % 34.6 % Red Cell Distribution Width 12.6 % 12.8 % Platelet Count 255 TH/MM3 223 TH/MM3 Mean Platelet Volume 7.8 FL 7.8 FL Neutrophils (%) (Auto) 56.4 % 46.9 % Lymphocytes (%) (Auto) 13.8 % 15.2 % Monocytes (%) (Auto) 16.6 % 19.1 % Eosinophils (%) (Auto) 12.3 % 17.5 % Basophils (%) (Auto) 0.9 % 1.3 % Neutrophils # (Auto) 4.0 TH/MM3 2.8 TH/MM3 Lymphocytes # (Auto) 1.0 TH/MM3 0.9 TH/MM3 Monocytes # (Auto) 1.2 TH/MM3 1.1 TH/MM3 Eosinophils # (Auto) 0.9 TH/MM3 1.0 TH/MM3 Basophils # (Auto) 0.1 TH/MM3 0.1 TH/MM3 CBC Comment DIFF FINAL DIFF FINAL Differential Comment Laboratory Tests Test 05/04/17 02:10 05/04/17 04:00 05/04/17 11:55 05/05/17 07:37 Blood Urea Nitrogen 15 MG/DL 13 MG/DL 10 MG/DL Creatinine 1.21 MG/DL 1.17 MG/DL 1.01 MG/DL Random Glucose 96 MG/DL 97 MG/DL 104 MG/DL Total Protein 7.9 GM/DL 7.4 GM/DL Albumin 4.2 GM/DL 3.7 GM/DL Calcium Level 9.0 MG/DL 8.9 MG/DL 9.0 MG/DL Alkaline Phosphatase 123 U/L 111 U/L Aspartate Amino Transf (AST/SGOT) 44 U/L 35 U/L Alanine Aminotransferase (ALT/SGPT) 55 U/L 43 U/L Total Bilirubin 0.7 MG/DL 0.7 MG/DL Sodium Level 124 MEQ/L 131 MEQ/L 132 MEQ/L Potassium Level 4.7 MEQ/L 5.1 MEQ/L 4.3 MEQ/L Chloride Level 93 MEQ/L 99 MEQ/L 101 MEQ/L Carbon Dioxide Level 22.0 MEQ/L 22.8 MEQ/L 21.9 MEQ/L Anion Gap 9 MEQ/L 9 MEQ/L 9 MEQ/L Estimat Glomerular Filtration Rate 60 ML/MIN 63 ML/MIN 74 ML/MIN C-Reactive Protein 0.89 MG/DL Serum Osmolality 268 MOSM/KG Total Creatine Kinase 123 U/L Microbiology Date/Time Source Procedure Growth Status 05/04/17 18:00 Wound Arm Gram Stain - Final Resulted 05/04/17 18:00 Wound Arm Wound Culture Pending Resulted SOCIAL HISTORY Alcohol positive in the form of beer daily. The patient drinks at least 10 beers a day. No tobacco. No illicit drug use. PHYSICAL EXAMINATION No acute distress. He is awake and alert and oriented. HEENT: The head is atraumatic. Extraocular movements grossly intact, no icterus. Oropharynx: moist mucosa without lesions. Neck: Supple. No adenopathy and no swelling. Lungs: Breath sounds clear. Heart: Regular S1-S2 without audible murmurs, rubs or gallops. Abdomen: Bowel sounds present, soft. No tenderness. Extremities: The left upper extremity has brown discoloration of the skin and there is clear drainage oozing. There is erythema slightly above the left elbow that is not confluent. Extremities have no clubbing, cyanosis or edema. Skin: Erythematous rash at the neck and chest, back and hands. Neuro: No gross focal findings. Psychiatric: Calm and cooperative. IMPRESSION: Cellulitis involving the left upper extremity. The appearance of the left upper extremity also could be due to some sort of allergic reaction to either antibiotics or the cream that the patient was using on his upper extremity. No improvement. RECOMMENDATIONS 1. Follow wound culture. 2. Continue Vancomycin 3. Continue Unasyn. 4. Telfa dressing to the left arm. 5. Monitor clinical response. Charlie Vinson MD May 05, 2017 12:29
[2017-05-05] MEDS ORDERED: LORazepam 2 MG/ML VIAL IV PUSH PRN ×4 (13:45)
[2017-05-05] MEDS ORDERED: FLUMAZENIL 0.5 MG/5 ML VIAL IV PUSH PRN (13:45)
[2017-05-05] MEDS ORDERED: LORazepam 2 MG TAB PO PRN (13:45)
[2017-05-05] MEDS ORDERED: LORazepam 1 MG TAB PO PRN (13:45)
--- NOTE | 2017-05-05 13:45 | HHI.PR ---
Subjective Remarks Follow-up cellulitis of left upper extremity 05/05/17-patient seen and examined, still complains of left upper extremity seeping.Afebrile Objective Vitals Vital Signs Date Time Temp Pulse Resp B/P (MAP) Pulse Ox O2 Delivery O2 Flow Rate FiO2 05/05/17 12:00 97.3 68 20 135/72 (93) 96 05/05/17 08:00 64 05/05/17 08:00 97.7 71 20 146/74 (98) 97 05/05/17 07:00 Room Air 05/05/17 04:00 Room Air 05/05/17 04:00 97.4 71 16 124/70 (88) 97 05/05/17 03:46 57 05/05/17 00:00 Room Air 05/05/17 00:00 97.5 65 18 146/67 (93) 97 05/04/17 23:46 72 05/04/17 20:00 97.8 80 18 151/79 (103) 98 05/04/17 20:00 Room Air 05/04/17 19:52 82 05/04/17 17:32 82 05/04/17 16:00 96.1 83 20 151/67 (95) 98 05/04/17 16:00 81 I/O 05/04/17 05/04/17 05/04/17 05/05/17 05/05/17 05/05/17 07:00 15:00 23:00 07:00 15:00 23:00 Intake Total 550 ml 480 ml 240 ml 120 ml Output Total 1550 ml 1400 ml Balance 550 ml -1070 ml -1160 ml 120 ml Intake Oral 480 ml 240 ml 120 ml IV Total 550 ml Output Urine Total 1550 ml 1400 ml # Bowel Movements 0 0 Result Diagram: 05/05/17 0737 05/05/17 0737 Imaging Last Impressions Chest X-Ray 05/04/17 0257 Signed Impressions: Service Date/Time: Thursday, May 04, 2017 03:05 - CONCLUSION: Cardiomegaly. Clear lungs. Daniel Yousif Jr., MD Radius/Ulna X-Ray 05/04/17 0000 Signed Impressions: Service Date/Time: Thursday, May 04, 2017 03:18 - CONCLUSION: Unremarkable examination of the left forearm. Daniel Yousif Jr., MD Objective Remarks GENERAL: NAD SKIN: Warm and dry.left arm cellulitis with seeping of fluid HEAD: Normocephalic. EYES: No scleral icterus. No injection or drainage. NECK: Supple, trachea midline. No JVD or lymphadenopathy. CARDIOVASCULAR: Regular rate and rhythm without murmurs, gallops, or rubs. RESPIRATORY: Breath sounds equal bilaterally. No accessory muscle use. GASTROINTESTINAL: Abdomen soft, non-tender, nondistended. MUSCULOSKELETAL: No cyanosis, or edema. BACK: Nontender without obvious deformity. No CVA tenderness. A/P Problem List: (1) Left arm cellulitis ICD Code: L03.114 - Cellulitis of left upper limb Status: Acute Assessment and Plan 66-year-old man with Left arm cellulitis/impetigo. Currently on Unasyn and vancomycin per ID Monitor culture Severe hypoosmotic hyponatremia 124 on admission. BEER potomania Resolved Alcoholism Scheduled Librium. CIWA, rally pack CAD Hyperlipidemia Resume Statin, continue ASA Hypertension Resume Hydralazine and continue current meds Prophylaxis. SCDs Erasto Rodriguez MD May 05, 2017 13:45
[2017-05-05] MEDS: ATORVASTATIN 40 MG TAB PO SCH (21:02)
[2017-05-05] MEDS: SODIUM CHLORIDE 0.9% FLUSH 10 ML FLUSH IV FLUSH PRN (23:43)
[2017-05-06] VITALS: BP 108/54; PULSE 65; PULSE 68; RESP 16; TEMP 97.7; O2SAT 96
[2017-05-06 04:00] VITALS: BP 144/80; PULSE 56; PULSE 76; RESP 18; TEMP 97.1; O2SAT 96
[2017-05-06] MEDS: AMPICILLIN/SULBAC 3 GM/NS 100 ML IV SCH ×6 (04:43→18:43)
[2017-05-06] MEDS: SODIUM CHLORIDE 0.9% FLUSH 10 ML FLUSH IV FLUSH PRN (04:43)
[2017-05-06] MEDS: VANCOMYCIN INJ 1,250 MG in SODIUM CHLOR 0.9% 250 ML INJ 250 ML IV SCH (04:49)
[2017-05-06 08:00] VITALS: BP_SYST 140; BP_SYST 147; BP_DIAS 75; PULSE 67; PULSE 68; RESP 20; TEMP 97.1; TEMP 97.5; O2SAT 97
[2017-05-06 08:10] VITALS: PULSE 64
[2017-05-06] MEDS: THIAMINE HCL 100 MG TAB PO SCH (09:30)
[2017-05-06] MEDS: DOCUSATE SODIUM 50 MG/SENNA 8.6 MG TAB PO SCH ×2 (09:30→21:00)
[2017-05-06] MEDS: METOPROLOL TARTRATE 25 MG TAB PO SCH ×2 (09:30→22:08)
[2017-05-06] MEDS: SODIUM CHLORIDE 0.9% FLUSH 10 ML FLUSH IV FLUSH SCH ×2 (09:31→22:08)
[2017-05-06] MEDS: hydrALAZINE HCL 25 MG TAB PO SCH (09:31)
[2017-05-06] MEDS: ASPIRIN 325 MG TAB PO SCH (09:31)
--- NOTE | 2017-05-06 11:42 | HHI.PR ---
Subjective Remarks Follow-up cellulitis of left upper extremity 05/05/17-patient seen and examined, still complains of left upper extremity seeping.Afebrile 05/06/17-patient seen and examined, denies any significant to left upper extremity. Currently afebrile. Objective Vitals Vital Signs Date Time Temp Pulse Resp B/P (MAP) Pulse Ox O2 Delivery O2 Flow Rate FiO2 05/06/17 08:00 97.5 68 20 140/75 (96) 97 05/06/17 04:00 56 05/06/17 04:00 97.1 76 18 144/80 (101) 96 05/06/17 00:00 65 05/06/17 00:00 97.7 68 16 108/54 (72) 96 05/05/17 20:00 98.8 74 18 128/73 (91) 97 05/05/17 20:00 67 05/05/17 19:00 96 Room Air 05/05/17 16:00 100 05/05/17 16:00 97.9 74 20 103/63 (76) 96 05/05/17 12:00 97.3 68 20 135/72 (93) 96 I/O 05/05/17 05/05/17 05/05/17 05/06/17 05/06/17 05/06/17 07:00 15:00 23:00 07:00 15:00 23:00 Intake Total 240 ml 120 ml 600 ml 480 ml Output Total 1400 ml 700 ml Balance -1160 ml 120 ml 600 ml -220 ml Intake Oral 240 ml 120 ml 600 ml 480 ml Output Urine Total 1400 ml 700 ml # Voids 3 # Bowel Movements 0 2 2 Result Diagram: 05/05/17 0737 05/05/17 0737 Objective Remarks GENERAL: NAD SKIN: Warm and dry.left arm cellulitis with seeping of fluid HEAD: Normocephalic. EYES: No scleral icterus. No injection or drainage. NECK: Supple, trachea midline. No JVD or lymphadenopathy. CARDIOVASCULAR: Regular rate and rhythm without murmurs, gallops, or rubs. RESPIRATORY: Breath sounds equal bilaterally. No accessory muscle use. GASTROINTESTINAL: Abdomen soft, non-tender, nondistended. MUSCULOSKELETAL: No cyanosis, or edema. BACK: Nontender without obvious deformity. No CVA tenderness. A/P Problem List: (1) Left arm cellulitis ICD Code: L03.114 - Cellulitis of left upper limb Status: Acute Assessment and Plan 66-year-old man with Left arm cellulitis/impetigo. Currently on Unasyn and vancomycin per ID Monitor culture Severe hypoosmotic hyponatremia 124 on admission. BEER potomania Resolved Alcoholism Scheduled Librium. CIWA, rally pack CAD Hyperlipidemia Continue Statin, continue ASA Hypertension Continue Hydralazine and current meds Prophylaxis. SCDs Erasto Rodriguez MD May 06, 2017 11:42
--- NOTE | 2017-05-06 13:30 | HHI.IDPN ---
Note Infectious Disease Note Patient feels okay. Notes the left arm is still weeping. Afebrile. Denies chills. No joint aches. This is a 66-year-old white male who sustained a tiny laceration to his left forearm about bby-zko-a-half weeks ago. He was evaluated at [facility] in [facility] and he was given oral antibiotics to take for a week. The antibiotics were Keflex and Bactrim. He noted that the wound was looking worse and, therefore, he presented to [place] for evaluation. PAST MEDICAL HISTORY 1. Hypertension. 2. Hyperlipidemia. 3. History of shoulder surgery. 4. History of aortic valve repair. 5. Hernia repair. 6. Carotid endarterectomy. ALLERGIES NO KNOWN DRUG ALLERGIES. Current Medications Medications (Trade) Dose Ordered Sig/Arnaldo Route PRN Reason Start Time Stop Time Status Last Admin Dose Admin Sodium Chloride (NS Flush) 2 ml UNSCH PRN IVF FLUSH AFTER USING IV ACCESS 05/04/17 04:00 Pharmacy Profile Note 0 ml @ 0 mls/hr UNSCH OTHER 05/04/17 04:15 Sodium Chloride (NS Flush) 2 ml UNSCH PRN IV FLUSH FLUSH AFTER USING IV ACCESS 05/04/17 04:15 05/06/17 04:43 Sodium Chloride (NS Flush) 2 ml BID IV FLUSH 05/04/17 09:00 05/06/17 09:31 Ondansetron HCl (Zofran Inj) 4 mg Q6H PRN IVP NAUSEA OR VOMITING 05/04/17 04:15 Acetaminophen (Tylenol) 650 mg Q6H PRN PO FEVER/PAIN SCALE 1 TO 2 05/04/17 04:15 Acetaminophen/ Hydrocodone Bitart ([place] 5-325 Mg) 1 tab Q4H PRN PO PAIN SCALE 3 TO 5 05/04/17 04:15 Morphine Sulfate (Morphine Inj) 2 mg Q3H PRN IV PUSH Pain 6-10 05/04/17 04:15 Senna/Docusate Sodium (Ivis-Colace) 1 tab BID PO 05/04/17 09:00 05/06/17 09:30 Magnesium Hydroxide (Milk Of Magnesia Liq) 30 ml Q12H PRN PO Mild constipation 05/04/17 04:15 Sennosides (Senokot) 17.2 mg Q12H PRN PO Moderate constipation 05/04/17 04:15 Bisacodyl (Dulcolax Supp) 10 mg DAILY PRN RECTAL SEVERE CONSITIPATION 05/04/17 04:15 Lactulose (Lactulose Liq) 30 ml DAILY PRN PO SEVERE CONSITIPATION 05/04/17 04:15 Diphenhydramine HCl (Benadryl Inj) 25 mg Q4H PRN IV PUSH ITCHING 05/04/17 04:15 05/05/17 00:53 Vancomycin HCl 1250 mg/Sodium Chloride 262.5 ml @ 250 mls/hr Q24H IV 05/05/17 06:00 05/06/17 04:49 Miscellaneous Information SPECIFIC LAB TO BE ... ONCE ONCE .XX 05/07/17 05:45 05/07/17 05:46 Aspirin (Aspirin) 325 mg DAILY PO 05/05/17 09:00 05/06/17 09:31 Metoprolol Tartrate (Lopressor) 25 mg Q12HR PO 05/04/17 12:00 05/06/17 09:30 Chlordiazepoxide (Librium) 5 mg TID PO 05/04/17 18:00 05/06/17 09:33 Thiamine HCl (Vitamin B1) 100 mg DAILY PO 05/05/17 09:00 05/06/17 09:30 Diphenhydramine HCl (Benadryl Inj) 25 mg Q4H PRN IM ITCHING 05/04/17 15:15 Ampicillin Sodium/ Sulbactam Sodium 3 gm/Sodium Chloride 100 ml @ 200 mls/hr Q6H IV 05/04/17 18:00 05/06/17 11:33 Atorvastatin Calcium (Lipitor) 40 mg HS PO 05/05/17 21:00 05/05/17 21:02 Hydralazine HCl (Apresoline) 25 mg DAILY PO 05/06/17 09:00 05/06/17 09:31 Flumazenil (Romazicon Inj) 0.2 mg Q1M PRN IV PUSH SEE LABEL COMMENTS 05/05/17 13:45 Lorazepam (Ativan) 1 mg Q4H PRN PO CIWA 8 - 10 05/05/17 13:45 Lorazepam (Ativan Inj) 1 mg Q4H PRN IV PUSH CIWA 8 - 10 05/05/17 13:45 Lorazepam (Ativan) 2 mg Q2H PRN PO CIWA 11-14 05/05/17 13:45 Lorazepam (Ativan Inj) 2 mg Q2H PRN IV PUSH CIWA 11-14 05/05/17 13:45 Lorazepam (Ativan Inj) 2 mg Q1H PRN IV PUSH CIWA 15-20 05/05/17 13:45 Lorazepam (Ativan Inj) 2 mg Q15M PRN IV PUSH CIWA > 20 05/05/17 13:45 OBJECTIVE: Vital Signs Date Time Temp Pulse Resp B/P (MAP) Pulse Ox O2 Delivery O2 Flow Rate FiO2 05/06/17 08:00 97.1 67 20 147/75 (99) 97 05/06/17 08:00 97.5 68 20 140/75 (96) 97 05/06/17 04:00 56 05/06/17 04:00 97.1 76 18 144/80 (101) 96 05/06/17 00:00 65 05/06/17 00:00 97.7 68 16 108/54 (72) 96 05/05/17 20:00 98.8 74 18 128/73 (91) 97 05/05/17 20:00 67 05/05/17 19:00 96 Room Air 05/05/17 16:00 100 05/05/17 16:00 97.9 74 20 103/63 (76) 96 Laboratory Tests Test 05/05/17 07:37 White Blood Count 5.9 TH/MM3 Red Blood Count 3.95 MIL/MM3 Hemoglobin 13.0 GM/DL Hematocrit 37.5 % Mean Corpuscular Volume 94.9 FL Mean Corpuscular Hemoglobin 32.9 PG Mean Corpuscular Hemoglobin Concent 34.6 % Red Cell Distribution Width 12.8 % Platelet Count 223 TH/MM3 Mean Platelet Volume 7.8 FL Neutrophils (%) (Auto) 46.9 % Lymphocytes (%) (Auto) 15.2 % Monocytes (%) (Auto) 19.1 % Eosinophils (%) (Auto) 17.5 % Basophils (%) (Auto) 1.3 % Neutrophils # (Auto) 2.8 TH/MM3 Lymphocytes # (Auto) 0.9 TH/MM3 Monocytes # (Auto) 1.1 TH/MM3 Eosinophils # (Auto) 1.0 TH/MM3 Basophils # (Auto) 0.1 TH/MM3 CBC Comment DIFF FINAL Differential Comment Laboratory Tests Test 05/05/17 07:37 Blood Urea Nitrogen 10 MG/DL Creatinine 1.01 MG/DL Random Glucose 104 MG/DL Total Protein 7.4 GM/DL Albumin 3.7 GM/DL Calcium Level 9.0 MG/DL Alkaline Phosphatase 111 U/L Aspartate Amino Transf (AST/SGOT) 35 U/L Alanine Aminotransferase (ALT/SGPT) 43 U/L Total Bilirubin 0.7 MG/DL Sodium Level 132 MEQ/L Potassium Level 4.3 MEQ/L Chloride Level 101 MEQ/L Carbon Dioxide Level 21.9 MEQ/L Anion Gap 9 MEQ/L Estimat Glomerular Filtration Rate 74 ML/MIN Microbiology Date/Time Source Procedure Growth Status 05/04/17 18:00 Wound Arm Gram Stain - Final Resulted 05/04/17 18:00 Wound Arm Wound Culture - Preliminary NO GROWTH IN 48 HOURS. Resulted SOCIAL HISTORY Alcohol positive in the form of beer daily. The patient drinks at least 10 beers a day. No tobacco. No illicit drug use. PHYSICAL EXAMINATION GENERAL: No acute distress. He is awake and alert and oriented. HEENT: No icterus. Oropharynx: moist mucosa without lesions. Neck: Supple. No adenopathy and no swelling. Lungs: Breath sounds clear. Heart: Regular S1-S2 without audible murmurs, rubs or gallops. Abdomen: Bowel sounds present, soft. No tenderness. Extremities: The left upper extremity has brown discoloration of the skin Ozzing clear fluid but less. There is erythema slightly above the left elbow that is not confluent. Extremities have no clubbing, cyanosis or edema. SKIN: Erythematous rash is decreased at the neck and chest, back and hands. NEURO: No gross focal findings. Psychiatric: Calm and cooperative. IMPRESSION: Cellulitis involving the left upper extremity. The appearance of the left upper extremity also could be due to some sort of allergic reaction to either antibiotics or the cream that the patient was using on his upper extremity. Looks improved. Likely drug reaction. RECOMMENDATIONS 1. Follow wound culture. 2. Stop Vancomycin 3. Continue Unasyn. 4. Telfa dressing to the left arm. 5. Monitor clinical response. If culture is negative tomorrow he can be discharged without antibiotics. Charlie Vinson MD May 06, 2017 13:30
[2017-05-06 16:00] VITALS: BP 136/62; PULSE 66; RESP 20; TEMP 97.5; O2SAT 99
[2017-05-06 20:00] VITALS: BP 167/74; PULSE 72; RESP 18; TEMP 97.5; O2SAT 97
[2017-05-06] MEDS: ATORVASTATIN 40 MG TAB PO SCH (22:08)
[2017-05-07] VITALS: BP 149/72; PULSE 63; RESP 16; TEMP 97.8; O2SAT 97
[2017-05-07] MEDS: AMPICILLIN/SULBAC 3 GM/NS 100 ML IV SCH ×4 (00:37→04:59)
[2017-05-07 04:00] VITALS: BP 158/80; PULSE 69; RESP 18; TEMP 97.4; O2SAT 98
[2017-05-07] MEDS ORDERED: PHARMACY ORDERED LAB ONE (05:45)
[2017-05-07] MEDS: VANCOMYCIN INJ 1,250 MG in SODIUM CHLOR 0.9% 250 ML INJ 250 ML IV SCH (06:11)
[2017-05-07 08:00] VITALS: BP 185/91; PULSE 69; RESP 18; TEMP 97.7; O2SAT 99
[2017-05-07] MEDS: SODIUM CHLORIDE 0.9% FLUSH 10 ML FLUSH IV FLUSH SCH (08:23)
[2017-05-07] MEDS: ASPIRIN 325 MG TAB PO SCH (08:25)
[2017-05-07] MEDS: hydrALAZINE HCL 25 MG TAB PO SCH (08:25)
[2017-05-07] MEDS: METOPROLOL TARTRATE 25 MG TAB PO SCH (08:26)
[2017-05-07] MEDS: DOCUSATE SODIUM 50 MG/SENNA 8.6 MG TAB PO SCH (08:26)
[2017-05-07] MEDS: THIAMINE HCL 100 MG TAB PO SCH (08:26)
[2017-05-07 09:13] LABS: CREATININE 0.92 MG/DL (0.60-1.30)
[2017-05-07 09:15] LABS: VANCOMYCIN TROUGH 7.4 MCG/ML (5.0-10.0)
--- NOTE | 2017-05-07 10:35 | HHI.PR ---
Subjective Remarks Follow-up cellulitis of left upper extremity 05/05/17-patient seen and examined, still complains of left upper extremity seeping.Afebrile 05/06/17-patient seen and examined, denies any significant to left upper extremity. Currently afebrile. 05/07/17-patient seen and examined, denies any pain to left arm and currently afebrile. Wound culture negative final report. Objective Vitals Vital Signs Date Time Temp Pulse Resp B/P (MAP) Pulse Ox O2 Delivery O2 Flow Rate FiO2 05/07/17 09:36 99 Room Air 05/07/17 08:00 97.7 69 18 185/91 (122) 99 05/07/17 04:00 97.4 69 18 158/80 (106) 98 05/07/17 00:00 97.8 63 16 149/72 (97) 97 05/07/17 00:00 97 Room Air 05/06/17 20:00 97.5 72 18 167/74 (105) 97 05/06/17 16:00 97.5 66 20 136/62 (86) 99 I/O 05/06/17 05/06/17 05/06/17 05/07/17 05/07/17 05/07/17 07:00 15:00 23:00 07:00 15:00 23:00 Intake Total 480 ml 1660 ml 680 ml 250 ml Output Total 700 ml 450 ml 1150 ml Balance -220 ml 1210 ml -470 ml 250 ml Intake Oral 480 ml 1560 ml 480 ml IV Total 100 ml 200 ml 250 ml Output Urine Total 700 ml 450 ml 1150 ml # Bowel Movements 2 2 1 Result Diagram: 05/05/17 0737 05/07/17 0553 Imaging Last Impressions Chest X-Ray 05/04/17 0257 Signed Impressions: Service Date/Time: Thursday, May 04, 2017 03:05 - CONCLUSION: Cardiomegaly. Clear lungs. Daniel Yousif Jr., MD Radius/Ulna X-Ray 05/04/17 0000 Signed Impressions: Service Date/Time: Thursday, May 04, 2017 03:18 - CONCLUSION: Unremarkable examination of the left forearm. Daniel Yousif Jr., MD Objective Remarks GENERAL: NAD SKIN: Warm and dry.left arm cellulitis improving HEAD: Normocephalic. EYES: No scleral icterus. No injection or drainage. NECK: Supple, trachea midline. No JVD or lymphadenopathy. CARDIOVASCULAR: Regular rate and rhythm without murmurs, gallops, or rubs. RESPIRATORY: Breath sounds equal bilaterally. No accessory muscle use. GASTROINTESTINAL: Abdomen soft, non-tender, nondistended. MUSCULOSKELETAL: No cyanosis, or edema. BACK: Nontender without obvious deformity. No CVA tenderness. Procedures none A/P Problem List: (1) Left arm cellulitis ICD Code: L03.114 - Cellulitis of left upper limb Status: Acute Assessment and Plan 66-year-old man with Left arm cellulitis/impetigo. Improving Currently on Unasyn and s/p vancomycin per ID wound culture negative final report Severe hypoosmotic hyponatremia 124 on admission. BEER potomania Resolved Alcoholism Scheduled Librium. CIWA, rally pack CAD Hyperlipidemia Continue Statin, continue ASA Hypertension Continue Hydralazine and current meds Prophylaxis. SCDs Erasto Rodriguez MD May 07, 2017 10:35
--- NOTE | 2017-05-07 10:38 | HHI.DS ---
Discharge Summary Admission Date May 04, 2017 at 04:02 Discharge Date: May 07, 2017 Admitting Diagnosis Hyponatremia, left arm cellulitis (1) Left arm cellulitis ICD Code: L03.114 - Cellulitis of left upper limb Status: Acute Procedures none Brief History - From Admission 66-year-old male with a history of CAD, status post CABG, reports injuring his left arm last week, with subsequent erythema having undergone evaluation at [facility], prescribed Keflex and Bactrim with initial improvement. He presents today, however with a one-day history of worsening left forearm itching with extension up to left arm. He denies any pain at all. Denies any other systemic symptoms. As any chest pain, shortness breath, nausea, vomiting, fevers, chills. Patient does report a history of heavy drinking 9-10 beers per day. Denies any history of seizures or alcohol withdrawal. CBC/BMP: 05/05/17 0737 05/07/17 0553 Significant Findings Laboratory Tests Test 05/04/17 11:55 05/04/17 12:55 05/05/17 07:37 05/07/17 05:53 Sodium Level 131 MEQ/L (136-145) 132 MEQ/L (136-145) Estimat Glomerular Filtration Rate 63 ML/MIN (>89) 74 ML/MIN (>89) 83 ML/MIN (>89) Red Blood Count 3.95 MIL/MM3 (4.50-5.90) Hematocrit 37.5 % (39.0-51.0) Monocytes (%) (Auto) 19.1 % (0.0-8.0) Eosinophils (%) (Auto) 17.5 % (0.0-4.0) Lymphocytes # (Auto) 0.9 TH/MM3 (1.0-4.8) Monocytes # (Auto) 1.1 TH/MM3 (0-0.9) Eosinophils # (Auto) 1.0 TH/MM3 (0-0.4) Imaging Last Impressions Chest X-Ray 05/04/17 0257 Signed Impressions: Service Date/Time: Thursday, May 04, 2017 03:05 - CONCLUSION: Cardiomegaly. Clear lungs. Daniel Yousif Jr., MD Radius/Ulna X-Ray 05/04/17 0000 Signed Impressions: Service Date/Time: Thursday, May 04, 2017 03:18 - CONCLUSION: Unremarkable examination of the left forearm. Daniel Yousif Jr., MD PE at Discharge GENERAL: NAD SKIN: Warm and dry.left arm cellulitis improving HEAD: Normocephalic. EYES: No scleral icterus. No injection or drainage. NECK: Supple, trachea midline. No JVD or lymphadenopathy. CARDIOVASCULAR: Regular rate and rhythm without murmurs, gallops, or rubs. RESPIRATORY: Breath sounds equal bilaterally. No accessory muscle use. GASTROINTESTINAL: Abdomen soft, non-tender, nondistended. MUSCULOSKELETAL: No cyanosis, or edema. BACK: Nontender without obvious deformity. No CVA tenderness. Hospital Course She admitted and treated with IV antibiotics including Unasyn and vancomycin for left upper arm cellulitis per infectious disease specialist. Wound culture was obtained and monitored. Patient conditions improved and wound culture final report was negative. Antibiotics were de- escalated over on discharge patient will not be needed any antibiotics. Treatment for other chronic medical conditions were resumed including hypertension and hyperlipidemia here DVT prophylaxis were provided. Prior to discharge, patient's condition improved. Pt Condition on Discharge: Good Discharge Disposition: Discharge Home Discharge Time: <= 30 minutes Discharge Instructions DIET: Follow Instructions for: Heart Healthy Diet Activities you can perform: Regular-No Restrictions Follow up Referrals: PCP Follow-up - 1 Week Continued Medications: Aspirin (Aspirin) 325 Mg Tab 325 MG PO DAILY, #30 TAB 0 Refills Atorvastatin (Atorvastatin) 40 Mg Tab 40 MG PO HS for Cholesterol Management, #30 TAB 0 Refills Hydralazine HCl (Hydralazine HCl) 25 Mg Tablet 25 MG PO DAILY for Blood Pressure Management, #60 TAB 0 Refills Lisinopril (Lisinopril) 40 Mg Tab 40 MG PO BID for Blood Pressure Management, #30 TAB 0 Refills Metoprolol Tartrate (Metoprolol Tartrate) 50 Mg Tab 50 MG PO DAILY, #30 TAB 0 Refills Discontinued Medications: Cephalexin (Cephalexin) 250 Mg Cap 250 MG PO Q6H for Infection, CAP 0 Refills Sulfamethoxazole-Trimethoprim (Bactrim DS) 800-160 Mg Tab 1 TAB PO BID for Infection, TAB 0 Refills Pontey,Erasto MD May 07, 2017 10:38
[2017-05-07 12:00] VITALS: BP 187/91; PULSE 74; RESP 18; TEMP 98.2; O2SAT 99
[2017-05-08] MEDS ORDERED: VANCOMYCIN INJ 1,250 MG in SODIUM CHLOR 0.9% 250 ML INJ 250 ML IV SCH ×2
[2017-05-10] MEDS ORDERED: PHARMACY ORDERED LAB ONE (05:45)
== END 2017-05-07 12:12 | disposition home or self-care (01) | DRG 603 ==
LOC: NEPC 01:37 → NEDA 04:02 → N04A 04:59
PROVIDERS: ADMIT Hospitalist; ATTEND Hospitalist
DX: L03.114 Cellulitis of left upper limb (principal); E87.1 Hypo-osmolality and hyponatremia; K76.89 Other specified diseases of liver; I10 Essential (primary) hypertension; L50.9 Urticaria, unspecified; Z95.2 Presence of prosthetic heart valve; Z87.891 Personal history of nicotine dependence; Z95.1 Presence of aortocoronary bypass graft; I25.10 Atherosclerotic heart disease of native coronary artery without angina pectoris; K21.9 Gastro-esophageal reflux disease without esophagitis; E78.5 Hyperlipidemia, unspecified; Z79.82 Long term (current) use of aspirin; S50.02XA Contusion of left elbow, initial encounter; W23.0XXA Caught, crushed, jammed, or pinched between moving objects, initial encounter; Y93.89 Activity, other specified; Y92.9 Unspecified place or not applicable; I73.9 Peripheral vascular disease, unspecified; M19.90 Unspecified osteoarthritis, unspecified site; F41.9 Anxiety disorder, unspecified; F32.9 Major depressive disorder, single episode, unspecified; F10.20 Alcohol dependence, uncomplicated; L01.00 Impetigo, unspecified
CPT/HCPCS: 71045; 73090; 80048; 80053; 80202; 80307; 81001; 82550; 82565; 83930; 83935; 84300; 85025; 85610; 85730; 86140; 87070; 87205; 96361; 96374; J0295; J0690; J1200; J3370; J7030; J7040; J7050